=== PATIENT | male | born 1980 | race American Indian/Alaskan Native ===

== ENCOUNTER 2017-12-25 10:23 | Emergency (ER) | payer SELFPAY ==
[2017-12-25 10:36] VITALS: BP 149/86
[2017-12-25] MEDS ORDERED: MOTRIN PO ONE (11:38)
--- NOTE | 2017-12-25 11:56 | Emergency Department Report ---
ED ENT HPI - General Chief complaint: Dental/Oral Stated complaint: LFT SIDE TOOTH PAIN Time Seen by Provider: 12/25/17 11:33 Source: patient Mode of arrival: Ambulatory Limitations: No Limitations - History of Present Illness Initial comments: 37-year-old male with no past medical history presents to the hospital complaining of dental pain since yesterday. Pain 4/10 in intensity, constant, worse with palpation and chewing. Patient denies known injury or tooth fracture , fever, face swelling, or difficulty swallowing. He has not been to a dentist in several years. - Related Data Previous Rx's Medication Instructions Recorded Last Taken Type Acetamin/Codeine 120-12Mg/5 ml 10 ml PO QID PRN #120 ml 02/27/14 Unknown Rx [Tylenol/Codeine 120-12 mg/5 ml] Amoxicillin [Trimox CAP] 500 mg PO Q8H #30 capsule 02/27/14 Unknown Rx predniSONE [Deltasone] 20 mg PO BID #10 tab 02/27/14 Unknown Rx Ibuprofen [Motrin] 800 mg PO Q8HR PRN #30 tablet 12/25/17 Unknown Rx traMADol [Ultram 50 MG tab] 50 mg PO Q6HR PRN #20 tablet 12/25/17 Unknown Rx Allergies Allergy/AdvReac Type Severity Reaction Status Date / Time No Known Allergies Allergy Verified 12/25/17 10:33 ED Dental HPI - General Chief complaint: Dental/Oral Stated complaint: LFT SIDE TOOTH PAIN Time Seen by Provider: 12/25/17 11:33 Source: patient Mode of arrival: Ambulatory Limitations: No Limitations - Related Data Previous Rx's Medication Instructions Recorded Last Taken Type Acetamin/Codeine 120-12Mg/5 ml 10 ml PO QID PRN #120 ml 02/27/14 Unknown Rx [Tylenol/Codeine 120-12 mg/5 ml] Amoxicillin [Trimox CAP] 500 mg PO Q8H #30 capsule 02/27/14 Unknown Rx predniSONE [Deltasone] 20 mg PO BID #10 tab 02/27/14 Unknown Rx Ibuprofen [Motrin] 800 mg PO Q8HR PRN #30 tablet 12/25/17 Unknown Rx traMADol [Ultram 50 MG tab] 50 mg PO Q6HR PRN #20 tablet 12/25/17 Unknown Rx Allergies Allergy/AdvReac Type Severity Reaction Status Date / Time No Known Allergies Allergy Verified 12/25/17 10:33 ED Review of Systems ROS: Stated complaint: LFT SIDE TOOTH PAIN Other details as noted in HPI Comment: All other systems reviewed and negative ED Past Medical Hx - Past Medical History Previous Medical History?: No - Surgical History Past Surgical History?: No - Social History Smoking Status: Never Smoker Substance Use Type: None - Medications Home Medications: Home Medications Medication Instructions Recorded Confirmed Last Taken Type Acetamin/Codeine 120-12Mg/5 ml 10 ml PO QID PRN #120 ml 02/27/14 Unknown Rx [Tylenol/Codeine 120-12 mg/5 ml] Amoxicillin [Trimox CAP] 500 mg PO Q8H #30 capsule 02/27/14 Unknown Rx predniSONE [Deltasone] 20 mg PO BID #10 tab 02/27/14 Unknown Rx Ibuprofen [Motrin] 800 mg PO Q8HR PRN #30 tablet 12/25/17 Unknown Rx traMADol [Ultram 50 MG tab] 50 mg PO Q6HR PRN #20 tablet 12/25/17 Unknown Rx ED Physical Exam - General Limitations: No Limitations - Other Other exam information: General: No limitations, patient is alert in no acute distress Head exam: Atraumatic, normocephalic Eyes exam: Normal appearance ENT: Moist mucous membrane, pain at tooth #16 to percussion without some swelling, apical abscess, or facial swelling Neck exam: Normal inspection, full range of motion, no meningismus nontender Respiratory exam: Clear to auscultation bilateral, no wheezes, rales, crackles Cardiovascular: Normal rate and rhythm, normal heart sounds Abdomen: Soft, nondistended, and nontender, with normal bowel sounds, no rebound, or guarding Extremity: Full range of motion normal inspection no deformity Back: Normal Inspection, full range of motion, no tenderness Neurologic: Alert, oriented x3, cranial nerves intact, no motor or sensory deficit Psychiatric: normal affect, normal mood Skin: Warm, dry, intact ED Course Vital Signs 12/25/17 10:33 Temperature 98.1 F Pulse Rate 73 Respiratory 18 Rate Blood Pressure 149/86 O2 Sat by Pulse 98 Oximetry ED Medical Decision Making - Medical Decision Making Patient presented with a toothache No clinical signs of infection We treated symptomatically for pain Motrin provided in the ED Dental referral provided - Differential Diagnosis caries, dental infection, fractured tooth Critical Care Time: No Critical care attestation.: If time is entered above; I have spent that time in minutes in the direct care of this critically ill patient, excluding procedure time. ED Disposition Clinical Impression: Toothache Disposition: TO HOME OR SELFCARE Is pt being admited?: No Does the pt Need Aspirin: No Condition: Stable Instructions: Toothache (ED) Additional Instructions: Take the medication as prescribed. Follow up with your dentist or the dentist provided. Return if symptoms worsen as indicated by your discharge instructions Prescriptions: Ibuprofen [Motrin] 800 mg PO Q8HR PRN #30 tablet PRN Reason: Pain, Moderate (4-6) traMADol [Ultram 50 MG tab] 50 mg PO Q6HR PRN #20 tablet PRN Reason: Pain Referrals: [facility] [Outside] - 3-5 Days Time of Disposition: 11:56
== END 2017-12-25 12:09 | disposition home or self-care (01) ==
LOC: ED 10:23
DX: K08.89 Other specified disorders of teeth and supporting structures (principal); Z79.899 Other long term (current) drug therapy
CPT/HCPCS: 99282

== ENCOUNTER 2019-11-29 20:37 | Emergency (ER) | payer SELFPAY ==
[2019-11-29 20:49] VITALS: BP 121/71
--- NOTE | 2019-11-29 23:19 | Emergency Department Report ---
ED General Adult HPI - General Chief complaint: Headache Stated complaint: HEADACHE PUI?: No Time Seen by Provider: 11/29/19 23:17 Source: patient, RN notes reviewed Mode of arrival: Ambulatory Limitations: No Limitations - History of Present Illness Initial comments: Patient is a 39-year-old gentleman, presenting to the ER with a complaint of resolved headache, and request for a note for work. The headache is not described as sudden or thunderclap in nature, not maximal in intensity, and not the worst headache of his life. It was frontal and right- sided, started a few hours ago, and is now resolved. He denies neck pain, chest pain, abdominal pain, shortness of breath, loss of vision, ocular pain, extremity weakness and or numbness, endorses no acute medical complaints at this time, and is requesting to be discharged so "I can get the last bus." -: Gradual Location: head Consistency: now resolved Improves with: none Worsens with: none Associated Symptoms: denies other symptoms - Related Data Previous Rx's Medication Instructions Recorded Last Taken Type Acetamin/Codeine 120-12Mg/5 ml 10 ml PO QID PRN #120 ml 02/27/14 Unknown Rx [Tylenol/Codeine 120-12 mg/5 ml] Amoxicillin [Trimox CAP] 500 mg PO Q8H #30 capsule 02/27/14 Unknown Rx predniSONE [Deltasone] 20 mg PO BID #10 tab 02/27/14 Unknown Rx Ibuprofen [Motrin] 800 mg PO Q8HR PRN #30 tablet 12/25/17 Unknown Rx traMADoL [Ultram 50 MG tab] 50 mg PO Q6HR PRN #20 tablet 12/25/17 Unknown Rx Allergies Allergy/AdvReac Type Severity Reaction Status Date / Time No Known Allergies Allergy Verified 12/25/17 10:33 ED Review of Systems ROS: Stated complaint: HEADACHE Other details as noted in HPI Constitutional: denies: fever Eyes: denies: eye discharge, vision change ENT: denies: throat pain Respiratory: denies: cough Cardiovascular: denies: chest pain Gastrointestinal: denies: abdominal pain Genitourinary: denies: dysuria Musculoskeletal: denies: back pain Neurological: headache. denies: weakness, numbness, paresthesias ED Past Medical Hx - Past Medical History Previous Medical History?: No - Surgical History Past Surgical History?: No - Social History Smoking Status: Never Smoker Substance Use Type: None - Medications Home Medications: Home Medications Medication Instructions Recorded Confirmed Last Taken Type Acetamin/Codeine 120-12Mg/5 ml 10 ml PO QID PRN #120 ml 02/27/14 Unknown Rx [Tylenol/Codeine 120-12 mg/5 ml] Amoxicillin [Trimox CAP] 500 mg PO Q8H #30 capsule 02/27/14 Unknown Rx predniSONE [Deltasone] 20 mg PO BID #10 tab 02/27/14 Unknown Rx Ibuprofen [Motrin] 800 mg PO Q8HR PRN #30 tablet 12/25/17 Unknown Rx traMADoL [Ultram 50 MG tab] 50 mg PO Q6HR PRN #20 tablet 12/25/17 Unknown Rx ED Physical Exam - General Limitations: No Limitations General appearance: alert, in no apparent distress - Head Head exam: Present: atraumatic, normocephalic - Eye Eye exam: Present: normal appearance, PERRL, EOMI, other (Visual acuity intact to finger counting, color perception, reading at a close distance). Absent: nystagmus - ENT ENT exam: Present: normal exam, normal orophraynx, mucous membranes moist, normal external ear exam - Neck Neck exam: Present: normal inspection, full ROM. Absent: tenderness, meningismus - Respiratory Respiratory exam: Present: normal lung sounds bilaterally. Absent: respiratory distress - Cardiovascular Cardiovascular Exam: Present: normal rhythm, bradycardia, normal heart sounds. Absent: tachycardia, irregular rhythm, systolic murmur, diastolic murmur, rubs, gallop - GI/Abdominal GI/Abdominal exam: Present: soft. Absent: distended, tenderness, guarding, rebound, rigid, pulsatile mass - Rectal Rectal exam: Present: deferred - Extremities Exam Extremities exam: Present: normal inspection, full ROM, other (2+ pulses noted in the bilateral upper and lower extremities. There is no palpable cord. negative Homans sign. Muscular compartments are soft. The pelvis is stable.). Absent: pedal edema, calf tenderness - Back Exam Back exam: Present: normal inspection, full ROM. Absent: tenderness, CVA tenderness (R), CVA tenderness (L), paraspinal tenderness, vertebral tenderness - Neurological Exam Neurological exam: Present: alert, oriented X3, normal gait, other (No facial droop. Tongue midline. Extraocular movements intact bilaterally. Facial sensation intact to light touch in V1, V2, V3 distribution bilaterally. 5 and a 5 strength in 4 extremities. Sensation intact to light touch in 4 extremities .). Absent: motor sensory deficit - Psychiatric Psychiatric exam: Present: normal affect, normal mood - Skin Skin exam: Present: warm, dry, intact, normal color. Absent: rash ED Course Vital Signs 11/29/19 11/29/19 20:47 23:23 Temperature 98.4 F Pulse Rate 56 L 65 Respiratory 18 16 Rate Blood Pressure 121/71 O2 Sat by Pulse 98 100 Oximetry ED Medical Decision Making - Medical Decision Making Vital Signs 11/29/19 11/29/19 20:47 23:23 Temperature 98.4 F Pulse Rate 56 L 65 Respiratory 18 16 Rate Blood Pressure 121/71 O2 Sat by Pulse 98 100 Oximetry Differential diagnosis, including but not limited to: Resolved headache, general medical exam Assessment and plan: 39-year-old gentleman, who is afebrile, with reassuring vital signs, in no acute distress, with a GCS of 15, nonfocal neurologic examination, presenting with a complaint of resolved headache, and request for work excuse. He does not appear to have an emergent medical condition at this time. His physical exam is benign and unremarkable. Expectant management, he is suitable for discharge with outpatient follow-up Critical care attestation.: If time is entered above; I have spent that time in minutes in the direct care of this critically ill patient, excluding procedure time. ED Disposition Clinical Impression: General medical exam, History of headache Disposition: - TO HOME OR SELFCARE Is pt being admited?: No Does the pt Need Aspirin: No Condition: Stable Additional Instructions: Rest, avoid heavy lifting, and avoid strenuous physical activities. Get at leas t 6 hours of sleep per night, patient may take [id number] Tylenol and/or Motrin as needed for pain. Please follow-up with a primary care doctor within the next month. Please return to the emergency room right away with new pain, worsening pain, migration of pain, projectile vomiting, change in mental status, confusion, inability to tolerate liquid feeds, new, worsened or different symptoms not present on the initial emergency room evaluation Referrals: LEIGH ACOSTA MD [Staff Physician] - 3-5 Days [facility] [Provider Group] - 3-5 Days Forms: Work/School Release Form(ED)
== END 2019-11-29 23:23 | disposition home or self-care (01) ==
LOC: ED 20:37
DX: R51 Headache (principal); Z00.00 Encounter for general adult medical examination without abnormal findings; Z79.1 Long term (current) use of non-steroidal anti-inflammatories (NSAID); Z79.2 Long term (current) use of antibiotics; Z79.899 Other long term (current) drug therapy
CPT/HCPCS: 99282

== ENCOUNTER 2020-06-06 08:49 | Emergency (ER) | payer SELFPAY ==
[2020-06-06 09:01] VITALS: BP 135/92
--- NOTE | 2020-06-06 09:05 | Emergency Department Report ---
ED Back Pain/Injury HPI - General Stated Complaint: BACK PAIN Time Seen by Provider: 06/06/20 08:55 - History of Present Illness Initial Comments: There is a very pleasant 39-year-old male presents the emergency department chief complaint of left-sided upper back pain over the past few weeks. Patient denies any injuries. He reports repetitive motion at his job that aggravates his pain. He does report a past medical history of spina bifida which was repaired surgically as a baby. He denies any associated fever, chills, night sweats, headache, dizziness, blurry vision, nausea, vomiting, diarrhea, chest pain, shortness of breath, saddle anesthesia, urinary or bowel incontinence, urinary retention, radicular pain, arm pain or weakness, leg pain weakness or any other associated symptoms. He reports pain is dull and achy aggravated with movement of the left arm rated a 6 out of 10 in severity. - Related Data Previous Rx's Medication Instructions Recorded Last Taken Type Acetamin/Codeine 120-12Mg/5 ml 10 ml PO QID PRN #120 ml 02/27/14 Unknown Rx [Tylenol/Codeine 120-12 mg/5 ml] Amoxicillin [Trimox CAP] 500 mg PO Q8H #30 capsule 02/27/14 Unknown Rx predniSONE [Deltasone] 20 mg PO BID #10 tab 02/27/14 Unknown Rx Ibuprofen [Motrin] 800 mg PO Q8HR PRN #30 tablet 12/25/17 Unknown Rx traMADoL [Ultram 50 MG tab] 50 mg PO Q6HR PRN #20 tablet 12/25/17 Unknown Rx Naproxen [EC-Naprosyn] 500 mg PO BID #20 tablet. 06/06/20 Unknown Rx methOCARBAMOL [Robaxin TAB] 500 mg PO Q6H #20 tablet 06/06/20 Unknown Rx Allergies Allergy/AdvReac Type Severity Reaction Status Date / Time No Known Allergies Allergy Verified 12/25/17 10:33 ED Review of Systems ROS: Stated complaint: BACK PAIN Other details as noted in HPI Constitutional: denies: chills, fever Eyes: denies: eye pain, eye discharge, vision change ENT: denies: ear pain, throat pain Respiratory: denies: cough, shortness of breath, wheezing Cardiovascular: denies: chest pain, palpitations Endocrine: no symptoms reported Gastrointestinal: denies: abdominal pain, nausea, diarrhea Genitourinary: denies: urgency, dysuria Musculoskeletal: as per HPI, back pain. denies: joint swelling, arthralgia Skin: denies: rash, lesions Neurological: denies: headache, weakness, paresthesias Psychiatric: denies: anxiety, depression Hematological/Lymphatic: denies: easy bleeding, easy bruising ED Past Medical Hx - Social History Smoking Status: Never Smoker Substance Use Type: None - Medications Home Medications: Home Medications Medication Instructions Recorded Confirmed Last Taken Type Acetamin/Codeine 120-12Mg/5 ml 10 ml PO QID PRN #120 ml 02/27/14 Unknown Rx [Tylenol/Codeine 120-12 mg/5 ml] Amoxicillin [Trimox CAP] 500 mg PO Q8H #30 capsule 02/27/14 Unknown Rx predniSONE [Deltasone] 20 mg PO BID #10 tab 02/27/14 Unknown Rx Ibuprofen [Motrin] 800 mg PO Q8HR PRN #30 tablet 12/25/17 Unknown Rx traMADoL [Ultram 50 MG tab] 50 mg PO Q6HR PRN #20 tablet 12/25/17 Unknown Rx Naproxen [EC-Naprosyn] 500 mg PO BID #20 tablet.dr 06/06/20 Unknown Rx methOCARBAMOL [Robaxin TAB] 500 mg PO Q6H #20 tablet 06/06/20 Unknown Rx ED Physical Exam - General General appearance: alert, in no apparent distress - Head Head exam: Present: atraumatic, normocephalic - Eye Eye exam: Present: normal appearance, PERRL, EOMI Pupils: Present: normal accommodation - ENT ENT exam: Present: normal exam, normal orophraynx, mucous membranes moist - Neck Neck exam: Present: normal inspection, full ROM, other (Full active range of motion without pain). Absent: tenderness, meningismus - Respiratory Respiratory exam: Present: normal lung sounds bilaterally. Absent: respiratory distress, wheezes, rales, rhonchi, stridor - Cardiovascular Cardiovascular Exam: Present: regular rate, normal rhythm, normal heart sounds. Absent: systolic murmur, diastolic murmur, rubs, gallop - GI/Abdominal GI/Abdominal exam: Present: soft, normal bowel sounds. Absent: distended, tenderness, guarding, rebound, rigid - Rectal Rectal exam: Present: deferred - Extremities Exam Extremities exam: Present: normal inspection, full ROM, normal capillary refill, other (Negative Lerner sign, negative empty can test, negative Neer sign of the left shoulder mild tenderness to the left upper trapezius muscle). Absent: tenderness, calf tenderness (Negative Homans' sign bilaterally) - Back Exam Back exam: Present: normal inspection, full ROM, tenderness (Mild tenderness to the left thoracic paraspinal area with no midline tenderness to the cervical, thoracic or lumbar spine. Full active range of motion to full flexion extension without pain.), muscle spasm, paraspinal tenderness. Absent: CVA tenderness (R), CVA tenderness (L), vertebral tenderness - Neurological Exam Neurological exam: Present: alert, oriented X3, normal gait - Psychiatric Psychiatric exam: Present: normal affect, normal mood - Skin Skin exam: Present: warm, dry, intact, normal color. Absent: rash ED Medical Decision Making - Medical Decision Making Patient is nontoxic in no acute distress. Vital signs are stable. His neurologic exam was unremarkable and a nonfocal. He had tenderness palpation of the left paraspinal muscles of the thoracic spine spinal area with no midline tenderness to the spine. He had no injury. No weakness in the arms or radicular pain. The shoulder exam was unremarkable - Differential Diagnosis Strain, sprain, HNP Critical care attestation.: If time is entered above; I have spent that time in minutes in the direct care of this critically ill patient, excluding procedure time. ED Disposition Clinical Impression: Acute thoracic myofascial strain Qualifiers: Encounter type: initial encounter Qualified Code(s): S29.019A - Strain of muscle and tendon of unspecified wall of thorax, initial encounter Disposition: - TO HOME OR SELFCARE Is pt being admited?: No Condition: Stable Instructions: Thoracic Strain Rehab-SportsMed Prescriptions: Naproxen [EC-Naprosyn] 500 mg PO BID #20 tablet. methOCARBAMOL [Robaxin TAB] 500 mg PO Q6H #20 tablet Referrals: [facility] [Provider Group] - 3-5 Days Forms: Work/School Release Form(ED) Time of Disposition: 09:06
== END 2020-06-06 09:27 | disposition home or self-care (01) ==
LOC: ED 08:49
DX: S29.012A Strain of muscle and tendon of back wall of thorax, initial encounter (principal); Z79.1 Long term (current) use of non-steroidal anti-inflammatories (NSAID); Z79.2 Long term (current) use of antibiotics; Z79.899 Other long term (current) drug therapy; X58.XXXA Exposure to other specified factors, initial encounter; Y93.89 Activity, other specified; Y92.89 Other specified places as the place of occurrence of the external cause; Y99.8 Other external cause status
CPT/HCPCS: 99282